=== PATIENT | female | born 2000 | race Caucasian/White ===

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

== ENCOUNTER 2020-10-31 20:27 | Emergency (ER) | payer MEDICAID, OTHER ==
[~2020-10-31] VITALS: Ht 175.3 cm; Wt 81.8 kg
[~2020-10-31 20:27] MED LIST: ARIP2TAB27 PO; MIRT-89 PO
[2020-10-31 21:04] VITALS: BP 123/54
[2020-10-31] MEDS ORDERED: KETOROLAC TROMETHAMINE 30 MG/ML VIAL IM ONE (22:15)
== END 2020-11-01 00:18 | disposition home or self-care (01) ==
LOC: EMS 20:27
DX: S76.911A Strain of unspecified muscles, fascia and tendons at thigh level, right thigh, initial encounter (principal); Z88.8 Allergy status to other drugs, medicaments and biological substances; X58.XXXA Exposure to other specified factors, initial encounter; Y93.6A Activity, physical games generally associated with school recess, summer camp and children; Y92.89 Other specified places as the place of occurrence of the external cause; Y99.8 Other external cause status
CPT/HCPCS: 93971; 96372; 99284; J1885

== ENCOUNTER 2020-11-11 13:45 | Inpatient (IN) | payer MEDICAID, OTHER ==
[~2020-11-11] VITALS: Ht 175.3 cm; Wt 86.9 kg
[2020-11-11] MEDS ORDERED: QUET300T2 PO (14:06)
[2020-11-11] MEDS ORDERED: MULT-1192 PO (14:06)
[2020-11-11] MEDS ORDERED: CHLO25TA69 PO (14:06)
[2020-11-11] MEDS ORDERED: DOCU-270 PO (14:06)
[2020-11-11] MEDS ORDERED: IBUP-2070 PO (14:06)
[2020-11-11] MEDS ORDERED: CHLO100T31 PO (14:06)
[2020-11-11] MEDS ORDERED: GUAN1TAB22 PO (14:06)
[2020-11-11] MEDS ORDERED: LORA10TA7 PO (14:06)
[2020-11-11] MEDS ORDERED: POLY30DR OU (14:07)
[2020-11-11 14:37] LABS: EOSINOPHILS % (AUTO) 1.3 % (1.0-6.0); HEMATOCRIT 42.4 % (36-46); HEMOGLOBIN 14.1 g/dL (12.0-16.0); LYMPHOCYTES # (AUTO) 1.8 K/uL (1.0-4.8); LYMPHOCYTES % (AUTO) 28.7 % (22.0-44.0); MEAN CORPUSCULAR HEMOGLOBIN 29.1 pg (26.0-34.0); MEAN CORPUSCULAR HGB CONC 33.3 G/dL (31.0-37.0); MEAN CORPUSCULAR VOLUME 87 fL (80-100); MONOCYTES # (AUTO) 0.4 K/uL (0.1-1.0); MONOCYTES % (AUTO) 6.8 % (2.0-9.0); NEUTROPHILS # (AUTO) 3.9 K/uL (1.8-7.7); NEUTROPHILS % (AUTO) 62.2 % (40.0-70.0); PLATELET COUNT (AUTO) 325 K/uL (150-450); RED BLOOD CELL COUNT(AUTO) 4.85 MIL/uL (4.00-5.20); RED CELL DISTRIBUTION WIDTH 12.7 % (11.5-14.5)
[2020-11-11 14:51] LABS: ANION GAP 12 mmol/L (8-16); CALCIUM, TOTAL 9.3 mg/dL (8.8-10.5); CARBON DIOXIDE 27 mmol/L (22-29); CHLORIDE 103 mmol/L (98-107); CREATININE 0.75 mg/dL (0.60-1.30); GLOMERULAR FILTR. RATE CALC > 60 mL/min (>60); GLUCOSE,RANDOM 100 mg/dL (70-110); POTASSIUM 3.9 mmol/L (3.5-5.1); SODIUM SERUM 142 mmol/L (136-145); UREA NITROGEN, BLOOD 13 mg/dL (7-18)
[2020-11-11 14:57] LABS: ALANINE AMINOTRANSFERASE 31 U/L (12-78); ALBUMIN 4.1 g/dL (3.4-5.0); ALKALINE PHOSPHATASE 90 U/L (46-116); ASPARTATE AMINOTRANSFERASE 19 U/L (15-37); BILIRUBIN,TOTAL 0.5 mg/dL (0.1-1.0); TOTAL PROTEIN, SERUM 7.8 g/dL (6.4-8.2)
[2020-11-11] MEDS ORDERED: LORazepam 1 MG TABLET PO ONE (15:30)
[2020-11-11] MEDS ORDERED: HALOPERIDOL 5 MG TABLET PO ONE (15:30)
[2020-11-11 16:13] LABS: AMPHET/METH SCREEN,URINE NEGATIVE (NEGATIVE); BARBITURATE SCREEN, URINE NEGATIVE (NEGATIVE); BENZODIAZEPINES SCREEN,URINE NEGATIVE (NEGATIVE); CANNABINOID SCREEN,URINE NEGATIVE (NEGATIVE); COCAINE SCREEN,URINE NEGATIVE (NEGATIVE); METHADONE SCREEN, URINE NEGATIVE (NEGATIVE); OPIATE SCREEN,URINE NEGATIVE (NEGATIVE)
[2020-11-11 16:14] LABS: PHENCYCLIDINE SCREEN,URINE NEGATIVE (NEGATIVE)
[2020-11-11 17:47] LABS: COVID AG,FIA SOURCE NASOPHARYNGEAL
[2020-11-11 19:59] VITALS: BP 105/66
[2020-11-11] MEDS ORDERED: OLANZapine 5 MG RAPDIS TABLET PO PRN (22:45)
[2020-11-11] MEDS ORDERED: LORazepam 2 MG TABLET PO PRN (22:45)
[2020-11-11] MEDS ORDERED: ZOLPIDEM TARTRATE 10 MG TABLET PO PRN (22:45)
[2020-11-12] MEDS ORDERED: PETROLATUM,WHITE 28 GM JELLY TP PRN (07:00)
[2020-11-12] MEDS ORDERED: IBUPROFEN 600 MG TABLET PO PRN (07:00)
[2020-11-12] MEDS ORDERED: CloNIDine HCL 0.1 MG TABLET PO PRN (07:00)
[2020-11-12] MEDS ORDERED: ACETAMINOPHEN 325 MG TABLET PO PRN (07:00)
[2020-11-12] MEDS ORDERED: DOCUSATE SODIUM 100 MG CAPSULE PO PRN (07:00)
[2020-11-12] MEDS ORDERED: ALBUTEROL SULFATE HFA 90 MCG/PUFF 8 GM INHALER IH PRN (07:00)
[2020-11-12] MEDS ORDERED: MAG HYDROX/AL HYDROX/SIMETH ES 30 ML SUSPENSION UDCUP PO PRN (07:00)
[2020-11-12] MEDS ORDERED: MAGNESIUM HYDROXIDE SUSPENSION 30 ML UDCUP PO PRN (07:00)
[2020-11-12] MEDS ORDERED: BACITRACIN 28 GM OINTMENT TP PRN (07:00)
[2020-11-12] MEDS ORDERED: LOPERAMIDE HCL 2 MG CAPSULE PO PRN (07:00)
[2020-11-12] MEDS ORDERED: BENZOCAINE/MENTHOL LOZENGE PO PRN (07:00)
[2020-11-12] MEDS ORDERED: OMEPRAZOLE 20 MG CAPSULE PO PRN (07:00)
[2020-11-12] MEDS ORDERED: ONDANSETRON HCL 4 MG TABLET PO PRN (07:00)
[2020-11-12 08:38] VITALS: BP 96/60
[2020-11-12] MEDS: LORATADINE 10 MG TABLET PO SCH (10:00)
[2020-11-12] MEDS: MULTIVITAMINS, THERAPEUTIC TABLET PO SCH (10:00)
[2020-11-12 10:29] LABS: CHOL/HDL RATIO 4.4 (3.9-5.7)
[2020-11-12 16:37] VITALS: BP 119/68
[2020-11-12] MEDS: CARBOXYMETHYLCELLULOSE SODIUM 0.4 ML OPHTHALMIC SOLUTION [PF] OU SCH (21:10)
[2020-11-12] MEDS: TraZODone HCL 150 MG TABLET PO SCH (21:10)
[2020-11-13] MEDS: ZIPRASIDONE HCL 40 MG CAPSULE PO SCH ×2 (06:37→16:47)
[2020-11-13 08:33] VITALS: BP 106/77
[2020-11-13] MEDS: CARBOXYMETHYLCELLULOSE SODIUM 0.4 ML OPHTHALMIC SOLUTION [PF] OU SCH ×4 (08:56→20:07)
[2020-11-13] MEDS: GuanFACINE HCL 1 MG TABLET PO SCH ×2 (08:56→16:47)
[2020-11-13] MEDS: MULTIVITAMINS, THERAPEUTIC TABLET PO SCH (08:57)
[2020-11-13] MEDS: LORATADINE 10 MG TABLET PO SCH (08:57)
[2020-11-13 16:00] VITALS: BP 101/6
[2020-11-13] MEDS ORDERED: ARIP10TA38 PO (18:25)
[2020-11-13] MEDS: TraZODone HCL 150 MG TABLET PO SCH (20:07)
[2020-11-14] MEDS: ZIPRASIDONE HCL 60 MG CAPSULE PO SCH ×2 (06:55→17:10)
[2020-11-14] MEDS: GuanFACINE HCL 1 MG TABLET PO SCH ×2 (08:54→17:10)
[2020-11-14] MEDS: FLUoxetine HCL 20 MG CAPSULE PO SCH (08:54)
[2020-11-14] MEDS: LORATADINE 10 MG TABLET PO SCH (08:55)
[2020-11-14] MEDS: MULTIVITAMINS, THERAPEUTIC TABLET PO SCH (08:55)
[2020-11-14] MEDS: CARBOXYMETHYLCELLULOSE SODIUM 0.4 ML OPHTHALMIC SOLUTION [PF] OU SCH ×4 (08:55→21:08)
[2020-11-14 16:20] VITALS: BP 106/71
[2020-11-14] MEDS: TraZODone HCL 150 MG TABLET PO SCH (21:08)
[2020-11-15] MEDS: ZIPRASIDONE HCL 80 MG CAPSULE PO SCH ×2 (06:59→17:24)
[2020-11-15] MEDS: MULTIVITAMINS, THERAPEUTIC TABLET PO SCH (08:17)
[2020-11-15] MEDS: GuanFACINE HCL 1 MG TABLET PO SCH ×3 (08:18→17:24)
[2020-11-15] MEDS: CARBOXYMETHYLCELLULOSE SODIUM 0.4 ML OPHTHALMIC SOLUTION [PF] OU SCH ×4 (08:18→21:14)
[2020-11-15] MEDS: FLUoxetine HCL 20 MG CAPSULE PO SCH (08:47)
[2020-11-15] MEDS: LORATADINE 10 MG TABLET PO SCH (08:47)
[2020-11-15 08:54] VITALS: BP 95/53
[2020-11-15 16:00] VITALS: BP 103/65
[2020-11-15] MEDS ORDERED: OLANZapine 5 MG RAPDIS TABLET PO ONE (19:30)
[2020-11-15] MEDS: TraZODone HCL 150 MG TABLET PO SCH (21:14)
[2020-11-16] MEDS: ZIPRASIDONE HCL 80 MG CAPSULE PO SCH (06:47)
[2020-11-16] MEDS: LORATADINE 10 MG TABLET PO SCH (08:38)
[2020-11-16] MEDS: MULTIVITAMINS, THERAPEUTIC TABLET PO SCH (08:38)
[2020-11-16] MEDS: FLUoxetine HCL 20 MG CAPSULE PO SCH (08:38)
[2020-11-16] MEDS: CARBOXYMETHYLCELLULOSE SODIUM 0.4 ML OPHTHALMIC SOLUTION [PF] OU SCH ×2 (08:40→13:49)
[2020-11-16] MEDS: GuanFACINE HCL 1 MG TABLET PO SCH (08:40)
[2020-11-16 09:27] VITALS: BP 98/66
[2020-11-16] MEDS ORDERED: OMEG-135 PO (12:00)
[2020-11-16] MEDS ORDERED: OLAN5TAB94 PO (12:00)
[2020-11-16] MEDS ORDERED: FLUO20CA36 PO (12:00)
[2020-11-16] MEDS ORDERED: MELA5TAB3 PO (12:00)
[2020-11-16] MEDS ORDERED: GUAN1TAB2 PO (12:00)
[2020-11-16] MEDS ORDERED: TRAZ150 PO (12:00)
[2020-11-16] MEDS ORDERED: CARB1DRO8 OU (12:40)
[2020-11-16 15:20] LABS: COVID AG,FIA SOURCE NASOPHARYNGEAL
[2020-11-16] MEDS ORDERED: ZIPRASIDONE HCL 40 MG CAPSULE PO SCH (17:30)
[2020-11-16] MEDS ORDERED: OLANZapine 5 MG RAPDIS TABLET PO SCH (21:00)
== END 2020-11-16 16:30 | disposition home or self-care (01) | DRG 750 ==
LOC: EMS 13:45 → 3EI 18:30
PROVIDERS: ADMIT Psychiatry & Neurology Psychiatry; ATTEND Psychiatry & Neurology Psychiatry
DX: F25.1 Schizoaffective disorder, depressive type (principal); R45.851 Suicidal ideations; Z91.19 Patient's noncompliance with other medical treatment and regimen; F41.9 Anxiety disorder, unspecified; Z20.822 Contact with and (suspected) exposure to COVID-19; G47.00 Insomnia, unspecified; H54.61 Unqualified visual loss, right eye, normal vision left eye; Z87.820 Personal history of traumatic brain injury; Z65.3 Problems related to other legal circumstances; Z59.9 Problem related to housing and economic circumstances, unspecified; Z55.9 Problems related to education and literacy, unspecified
CPT/HCPCS: 80053; 80061; 85025; 87081; 93005; 99285; G0480

== ENCOUNTER 2021-03-22 17:12 | Inpatient (IN) | payer MEDICAID, OTHER ==
[~2021-03-22] VITALS: Ht 175.3 cm; Wt 86.6 kg
[~2021-03-22 17:12] MED LIST changes: -ARIP2TAB27 PO; +CEPH500C3 PO; +FLUO20CA36 PO; +LURA80TA2 PO; +MELA5TAB40 PO; -MIRT-89 PO; +NALT50TA PO; +OMEG-135 PO; +TRAZ-283 PO
[2021-03-22 17:47] LABS: BASOPHILS % (AUTO) 0.8 % (0.0-2.0); HEMATOCRIT 37.7 % (36-46); HEMOGLOBIN 12.8 g/dL (12.0-16.0); MEAN CORPUSCULAR HEMOGLOBIN 29.2 pg (26.0-34.0); MEAN CORPUSCULAR VOLUME 86 fL (80-100); MONOCYTES # (AUTO) 0.5 K/uL (0.1-1.0); MONOCYTES % (AUTO) 6.9 % (2.0-9.0); NEUTROPHILS % (AUTO) 60.3 % (40.0-70.0); PLATELET COUNT (AUTO) 323 K/uL (150-450); RED BLOOD CELL COUNT(AUTO) 4.38 MIL/uL (4.00-5.20)
[2021-03-22 17:58] LABS: ANION GAP 9 mmol/L (8-16); CALCIUM, TOTAL 9.2 mg/dL (8.8-10.5); CARBON DIOXIDE 30 mmol/L (22-29); CHLORIDE 103 mmol/L (98-107); CREATININE 0.91 mg/dL (0.60-1.30); GLOMERULAR FILTR. RATE CALC > 60 mL/min (>60); GLUCOSE,RANDOM 92 mg/dL (70-110); SODIUM SERUM 142 mmol/L (136-145); UREA NITROGEN, BLOOD 11 mg/dL (7-18)
[2021-03-22 18:04] LABS: ALANINE AMINOTRANSFERASE 24 U/L (12-78); ALBUMIN 3.9 g/dL (3.4-5.0); ALKALINE PHOSPHATASE 77 U/L (46-116); ASPARTATE AMINOTRANSFERASE 15 U/L (15-37); BILIRUBIN,TOTAL 0.2 mg/dL (0.1-1.0); TOTAL PROTEIN, SERUM 7.2 g/dL (6.4-8.2)
[2021-03-22 21:14] LABS: COVID AG,FIA SOURCE NASOPHARYNGEAL
[2021-03-22] MEDS ORDERED: ZOLPIDEM TARTRATE 10 MG TABLET PO PRN (23:30)
[2021-03-23 03:08] LABS: CHOL/HDL RATIO 3.3 (3.9-5.7); CHOLESTEROL 132 mg/dL (131-200); HDL CHOLESTEROL 40 mg/dL (40-60); LDL CHOL (CALC.) 75 mg/dL (0-130); TRIGLYCERIDES 87 mg/dL (15-150)
[2021-03-23 10:08] LABS: APPEARANCE,URINE CLEAR (CLEAR); BILIRUBIN,URINE NEGATIVE (NEGATIVE); GLUCOSE, URINE (UA) NEGATIVE (NEGATIVE); KETONES,URINE NEGATIVE (NEGATIVE); LEUKOCYTE ESTERASE ,URINE SMALL (NEGATIVE); NITRATE,URINE NEGATIVE (NEGATIVE); OCCULT BLOOD,URINE NEGATIVE (NEGATIVE); PH,URINE 5.5 (5.0-8.0); PROTEIN,URINE NEGATIVE (NEGATIVE); UROBILINOGEN,URINE 0.2 mg/dL (<=1.0)
[2021-03-23 10:13] LABS: AMPHET/METH SCREEN,URINE NEGATIVE (NEGATIVE); BARBITURATE SCREEN, URINE NEGATIVE (NEGATIVE); BENZODIAZEPINES SCREEN,URINE NEGATIVE (NEGATIVE); CANNABINOID SCREEN,URINE NEGATIVE (NEGATIVE); COCAINE SCREEN,URINE NEGATIVE (NEGATIVE); METHADONE SCREEN, URINE NEGATIVE (NEGATIVE); OPIATE SCREEN,URINE NEGATIVE (NEGATIVE)
[2021-03-23 10:17] LABS: PHENCYCLIDINE SCREEN,URINE NEGATIVE (NEGATIVE)
[2021-03-23 10:23] LABS: BACTERIA,URINE Moderate /HPF (None Seen); RBC,URINE None Seen /HPF (0-2); SQUAMOUS EPITHELIAL CELL,UR Moderate /LPF (None Seen)
[2021-03-23] MEDS ORDERED: ONDANSETRON HCL 4 MG TABLET PO PRN (10:30)
[2021-03-23] MEDS ORDERED: IBUPROFEN 400 MG TABLET PO PRN (10:30)
[2021-03-23] MEDS ORDERED: ACETAMINOPHEN 325 MG TABLET PO PRN (10:30)
[2021-03-23] MEDS ORDERED: MAG HYDROX/AL HYDROX/SIMETH ES 30 ML SUSPENSION UDCUP PO PRN (10:30)
[2021-03-23] MEDS ORDERED: NICOTINE 14 MG/24 HOUR PATCH TD PRN (10:30)
[2021-03-23] MEDS ORDERED: CloNIDine HCL 0.1 MG TABLET PO PRN (10:30)
[2021-03-23] MEDS ORDERED: DOCUSATE SODIUM 100 MG CAPSULE PO PRN (10:30)
[2021-03-23] MEDS ORDERED: MAGNESIUM HYDROXIDE SUSPENSION 30 ML UDCUP PO PRN (10:30)
[2021-03-23] MEDS ORDERED: ALBUTEROL SULFATE HFA 90 MCG/PUFF 8 GM INHALER IH PRN (10:30)
[2021-03-23] MEDS ORDERED: LOPERAMIDE HCL 2 MG CAPSULE PO PRN (10:30)
[2021-03-23] MEDS ORDERED: PETROLATUM,WHITE 28 GM JELLY TP PRN (10:30)
[2021-03-23] MEDS ORDERED: GuaiFENesin/D-METHORPHAN [SUGAR-FREE] 200-20MG/10 ML SYRUP UDCUP PO PRN (10:30)
[2021-03-23 14:38] VITALS: BP 110/63
[2021-03-23] MEDS: LORazepam 2 MG TABLET PO PRN ×2 (15:42→23:11)
[2021-03-23 16:11] VITALS: BP 110/68
[2021-03-23] MEDS: MELATONIN 5 MG TABLET PO SCH (20:55)
[2021-03-24 00:51] VITALS: BP 118/62
[2021-03-24 08:28] VITALS: BP 118/79
[2021-03-24] MEDS: OMEGA-3/DHA/EPA/FISH OIL 1,000 MG CAPSULE PO SCH (09:16)
[2021-03-24] MEDS: LORazepam 2 MG TABLET PO PRN (10:49)
[2021-03-24] MEDS: HALOPERIDOL 5 MG TABLET PO PRN (10:49)
[2021-03-24] MEDS: LURASIDONE HCL 80 MG TABLET PO SCH (16:25)
[2021-03-24 16:31] VITALS: BP 108/61
[2021-03-24] MEDS: MELATONIN 5 MG TABLET PO SCH (21:05)
[2021-03-24] MEDS: TraZODone HCL 150 MG TABLET PO SCH (21:06)
[2021-03-25 01:13] VITALS: BP 116/64
[2021-03-25] MEDS: LURASIDONE HCL 80 MG TABLET PO SCH ×2 (06:52→16:30)
[2021-03-25] MEDS: OMEGA-3/DHA/EPA/FISH OIL 1,000 MG CAPSULE PO SCH (08:27)
[2021-03-25] MEDS: FLUoxetine HCL 20 MG CAPSULE PO SCH (08:27)
[2021-03-25 14:23] VITALS: BP 110/68
[2021-03-25 17:51] VITALS: BP 116/69
[2021-03-25] MEDS: TraZODone HCL 150 MG TABLET PO SCH (20:49)
[2021-03-25] MEDS: MELATONIN 5 MG TABLET PO SCH (20:50)
[2021-03-25] MEDS: LORazepam 2 MG TABLET PO PRN (22:02)
[2021-03-26 03:45] VITALS: BP 102/81
[2021-03-26] MEDS: LURASIDONE HCL 80 MG TABLET PO SCH ×2 (07:18→16:34)
[2021-03-26] MEDS: OMEGA-3/DHA/EPA/FISH OIL 1,000 MG CAPSULE PO SCH (08:46)
[2021-03-26] MEDS: FLUoxetine HCL 20 MG CAPSULE PO SCH (08:46)
[2021-03-26 16:13] VITALS: BP 111/79
[2021-03-26] MEDS: MELATONIN 5 MG TABLET PO SCH (21:22)
[2021-03-26] MEDS: TraZODone HCL 150 MG TABLET PO SCH (21:22)
[2021-03-27 00:29] VITALS: BP 113/73
[2021-03-27] MEDS: LURASIDONE HCL 80 MG TABLET PO SCH ×2 (06:49→16:18)
[2021-03-27 08:16] VITALS: BP 103/63
[2021-03-27] MEDS: OMEGA-3/DHA/EPA/FISH OIL 1,000 MG CAPSULE PO SCH (08:25)
[2021-03-27] MEDS: FLUoxetine HCL 20 MG CAPSULE PO SCH (08:25)
[2021-03-27 16:20] VITALS: BP 104/91
[2021-03-27] MEDS: MELATONIN 5 MG TABLET PO SCH (20:14)
[2021-03-27] MEDS: TraZODone HCL 150 MG TABLET PO SCH (20:14)
[2021-03-28 00:46] VITALS: BP 115/72
[2021-03-28] MEDS: LURASIDONE HCL 80 MG TABLET PO SCH ×2 (06:46→16:22)
[2021-03-28 08:10] VITALS: BP 119/59
[2021-03-28] MEDS: OMEGA-3/DHA/EPA/FISH OIL 1,000 MG CAPSULE PO SCH (08:45)
[2021-03-28] MEDS: FLUoxetine HCL 20 MG CAPSULE PO SCH (08:45)
[2021-03-28 11:36] LABS: GLUCOMETER DEV NAME(LOC) POC.BV
[2021-03-28 16:17] VITALS: BP 107/68
[2021-03-28] MEDS: MELATONIN 5 MG TABLET PO SCH (20:47)
[2021-03-28] MEDS: TraZODone HCL 150 MG TABLET PO SCH (20:47)
[2021-03-29 00:30] VITALS: BP 110/76
[2021-03-29] MEDS: LURASIDONE HCL 80 MG TABLET PO SCH ×2 (06:49→19:43)
[2021-03-29 08:26] VITALS: BP 121/70
[2021-03-29] MEDS: LORazepam 2 MG TABLET PO PRN (08:35)
[2021-03-29] MEDS: FLUoxetine HCL 20 MG CAPSULE PO SCH (08:35)
[2021-03-29] MEDS: OMEGA-3/DHA/EPA/FISH OIL 1,000 MG CAPSULE PO SCH (08:35)
[2021-03-29 16:06] VITALS: BP 112/67
[2021-03-29] MEDS: MELATONIN 5 MG TABLET PO SCH (20:16)
[2021-03-29] MEDS: TraZODone HCL 150 MG TABLET PO SCH (20:16)
[2021-03-29] MEDS ORDERED: LORazepam 2 MG/ML VIAL ONE (20:43)
[2021-03-29] MEDS ORDERED: DiphenhydrAMINE HCL 50 MG/ML VIAL ONE (20:43)
[2021-03-29] MEDS ORDERED: HALOPERIDOL LACTATE 5 MG/ML VIAL ONE (20:43)
[2021-03-29] MEDS ORDERED: HALOPERIDOL LACTATE 5 MG/ML VIAL IM ONE (21:00)
[2021-03-29] MEDS ORDERED: DiphenhydrAMINE HCL 50 MG/ML VIAL IM ONE (21:00)
[2021-03-29] MEDS ORDERED: LORazepam 2 MG/ML VIAL IM ONE (21:00)
[2021-03-30 06:20] VITALS: BP 114/63
[2021-03-30] MEDS: LURASIDONE HCL 80 MG TABLET PO SCH ×2 (06:39→16:10)
[2021-03-30 08:18] VITALS: BP 121/76
[2021-03-30] MEDS: OMEGA-3/DHA/EPA/FISH OIL 1,000 MG CAPSULE PO SCH (08:38)
[2021-03-30] MEDS: FLUoxetine HCL 20 MG CAPSULE PO SCH (08:38)
[2021-03-30 16:14] VITALS: BP 112/70
[2021-03-30] MEDS: TraZODone HCL 150 MG TABLET PO SCH (20:09)
[2021-03-30] MEDS: MELATONIN 5 MG TABLET PO SCH (20:09)
[2021-03-31 00:05] VITALS: BP 110/65
[2021-03-31] MEDS: LURASIDONE HCL 80 MG TABLET PO SCH ×2 (06:30→16:21)
[2021-03-31] MEDS: OMEGA-3/DHA/EPA/FISH OIL 1,000 MG CAPSULE PO SCH (08:41)
[2021-03-31] MEDS: FLUoxetine HCL 20 MG CAPSULE PO SCH (08:41)
[2021-03-31 08:46] VITALS: BP 101/56
[2021-03-31] MEDS: LORazepam 2 MG TABLET PO PRN (09:14)
[2021-03-31 17:22] VITALS: BP 108/60
[2021-03-31] MEDS: TraZODone HCL 150 MG TABLET PO SCH (20:18)
[2021-03-31] MEDS: MELATONIN 5 MG TABLET PO SCH (20:18)
[2021-04-01 04:06] VITALS: BP 115/72
[2021-04-01] MEDS: LURASIDONE HCL 80 MG TABLET PO SCH ×2 (06:51→16:25)
[2021-04-01] MEDS: OMEGA-3/DHA/EPA/FISH OIL 1,000 MG CAPSULE PO SCH (09:38)
[2021-04-01] MEDS: FLUoxetine HCL 20 MG CAPSULE PO SCH (09:38)
[2021-04-01 16:10] VITALS: BP 114/62
[2021-04-01] MEDS: MELATONIN 5 MG TABLET PO SCH (20:48)
[2021-04-01] MEDS: TraZODone HCL 150 MG TABLET PO SCH (20:48)
[2021-04-02 06:33] VITALS: BP 120/78
[2021-04-02] MEDS: LURASIDONE HCL 80 MG TABLET PO SCH ×2 (06:56→16:56)
[2021-04-02 08:19] VITALS: BP 118/73
[2021-04-02] MEDS: OMEGA-3/DHA/EPA/FISH OIL 1,000 MG CAPSULE PO SCH (09:22)
[2021-04-02] MEDS: FLUoxetine HCL 20 MG CAPSULE PO SCH (09:22)
[2021-04-02] MEDS: HALOPERIDOL 5 MG TABLET PO PRN (09:26)
[2021-04-02] MEDS: LORazepam 2 MG TABLET PO PRN ×2 (09:26→20:35)
[2021-04-02 16:26] VITALS: BP 105/65
[2021-04-02] MEDS: MELATONIN 5 MG TABLET PO SCH (21:53)
[2021-04-02] MEDS: TraZODone HCL 150 MG TABLET PO SCH (21:53)
[2021-04-03 01:11] VITALS: BP 102/68
[2021-04-03] MEDS: LURASIDONE HCL 80 MG TABLET PO SCH ×2 (06:49→16:35)
[2021-04-03 08:17] VITALS: BP 110/66
[2021-04-03] MEDS: LORazepam 2 MG TABLET PO PRN ×2 (08:32→16:35)
[2021-04-03] MEDS: FLUoxetine HCL 20 MG CAPSULE PO SCH (08:32)
[2021-04-03] MEDS: OMEGA-3/DHA/EPA/FISH OIL 1,000 MG CAPSULE PO SCH (08:32)
[2021-04-03 16:21] VITALS: BP 111/67
[2021-04-03] MEDS: TraZODone HCL 150 MG TABLET PO SCH (20:09)
[2021-04-03] MEDS: MELATONIN 5 MG TABLET PO SCH (20:09)
[2021-04-04 00:20] VITALS: BP 108/63
[2021-04-04] MEDS: LURASIDONE HCL 80 MG TABLET PO SCH ×2 (06:54→16:06)
[2021-04-04 08:10] VITALS: BP 116/69
[2021-04-04] MEDS: LORazepam 2 MG TABLET PO PRN ×2 (08:39→16:06)
[2021-04-04] MEDS: FLUoxetine HCL 20 MG CAPSULE PO SCH (08:39)
[2021-04-04] MEDS: OMEGA-3/DHA/EPA/FISH OIL 1,000 MG CAPSULE PO SCH (08:39)
[2021-04-04 16:20] VITALS: BP 113/67
[2021-04-04] MEDS: TraZODone HCL 150 MG TABLET PO SCH (20:04)
[2021-04-04] MEDS: MELATONIN 5 MG TABLET PO SCH (20:05)
[2021-04-05 00:47] VITALS: BP 110/71
[2021-04-05] MEDS: LURASIDONE HCL 80 MG TABLET PO SCH ×2 (06:06→16:09)
[2021-04-05 08:05] VITALS: BP 106/62
[2021-04-05 08:09] VITALS: BP 114/72
[2021-04-05] MEDS: LORazepam 2 MG TABLET PO PRN ×2 (09:58→16:09)
[2021-04-05] MEDS: FLUoxetine HCL 20 MG CAPSULE PO SCH (09:58)
[2021-04-05] MEDS: OMEGA-3/DHA/EPA/FISH OIL 1,000 MG CAPSULE PO SCH (09:59)
[2021-04-05 16:22] VITALS: BP 139/60
[2021-04-05] MEDS: MELATONIN 5 MG TABLET PO SCH (21:05)
[2021-04-05] MEDS: TraZODone HCL 150 MG TABLET PO SCH (21:05)
[2021-04-06 05:27] VITALS: BP 140/85
[2021-04-06] MEDS: LURASIDONE HCL 80 MG TABLET PO SCH ×2 (06:18→16:02)
[2021-04-06 07:22] LABS: COVID AG,FIA SOURCE NASOPHARYNGEAL
[2021-04-06 08:13] VITALS: BP 120/70
[2021-04-06] MEDS: OMEGA-3/DHA/EPA/FISH OIL 1,000 MG CAPSULE PO SCH (08:42)
[2021-04-06] MEDS: FLUoxetine HCL 20 MG CAPSULE PO SCH (08:43)
[2021-04-06] MEDS: LORazepam 2 MG TABLET PO PRN ×3 (10:35→20:53)
[2021-04-06 16:02] VITALS: BP 127/72
[2021-04-06] MEDS: MELATONIN 5 MG TABLET PO SCH (20:53)
[2021-04-06] MEDS: TraZODone HCL 150 MG TABLET PO SCH (20:53)
[2021-04-07 01:16] VITALS: BP 114/68
[2021-04-07] MEDS: LURASIDONE HCL 80 MG TABLET PO SCH ×2 (07:05→16:12)
[2021-04-07 08:08] VITALS: BP 118/84
[2021-04-07] MEDS: OMEGA-3/DHA/EPA/FISH OIL 1,000 MG CAPSULE PO SCH (08:15)
[2021-04-07] MEDS: FLUoxetine HCL 20 MG CAPSULE PO SCH (08:15)
[2021-04-07] MEDS: LORazepam 2 MG TABLET PO PRN ×2 (11:44→20:22)
[2021-04-07 16:08] VITALS: BP 104/62
[2021-04-07] MEDS: TraZODone HCL 150 MG TABLET PO SCH (20:21)
[2021-04-07] MEDS: MELATONIN 5 MG TABLET PO SCH (20:21)
[2021-04-08 00:08] VITALS: BP 101/69
[2021-04-08] MEDS: LURASIDONE HCL 80 MG TABLET PO SCH ×2 (07:11→16:26)
[2021-04-08] MEDS: FLUoxetine HCL 20 MG CAPSULE PO SCH (08:09)
[2021-04-08] MEDS: OMEGA-3/DHA/EPA/FISH OIL 1,000 MG CAPSULE PO SCH (08:09)
[2021-04-08 08:33] VITALS: BP 93/59
[2021-04-08 16:07] VITALS: BP 111/67
[2021-04-08] MEDS: TraZODone HCL 150 MG TABLET PO SCH (20:43)
[2021-04-08] MEDS: MELATONIN 5 MG TABLET PO SCH (20:44)
[2021-04-09 01:33] VITALS: BP 108/60
[2021-04-09] MEDS: LURASIDONE HCL 80 MG TABLET PO SCH (06:56)
[2021-04-09] MEDS: FLUoxetine HCL 20 MG CAPSULE PO SCH (08:33)
[2021-04-09] MEDS: OMEGA-3/DHA/EPA/FISH OIL 1,000 MG CAPSULE PO SCH (08:33)
[2021-04-09 08:35] VITALS: BP 119/73
== END 2021-04-09 13:15 | disposition home or self-care (01) | DRG 750 ==
LOC: EMS 17:12 → B3A 03-23 12:47 → B2S 03-24 12:14 → B3A 03-29 21:15
PROVIDERS: ADMIT Psychiatry & Neurology Psychiatry; ATTEND Psychiatry & Neurology Psychiatry
DX: F25.1 Schizoaffective disorder, depressive type (principal); F70 Mild intellectual disabilities; H54.61 Unqualified visual loss, right eye, normal vision left eye; Z20.822 Contact with and (suspected) exposure to COVID-19; N39.0 Urinary tract infection, site not specified; S61.511A Laceration without foreign body of right wrist, initial encounter; S61.512A Laceration without foreign body of left wrist, initial encounter; X78.9XXA Intentional self-harm by unspecified sharp object, initial encounter; Z59.00 Homelessness unspecified; Z79.899 Other long term (current) drug therapy; Z88.8 Allergy status to other drugs, medicaments and biological substances; Y93.89 Activity, other specified; Y92.89 Other specified places as the place of occurrence of the external cause; Y99.8 Other external cause status
CPT/HCPCS: 80053; 80061; 81001; 84703; 85025; 87081; 87086; 99285; G0480; J1200; J1630; J2060; Q9967

== ENCOUNTER 2023-03-14 21:14 | Inpatient (IN) | payer MEDICAID ==
[~2023-03-14] VITALS: Ht 170.2 cm; Wt 113.9 kg
[~2023-03-14 21:14] MED LIST changes: -CEPH500C3 PO; -FLUO20CA36 PO; +LITH300C3 PO; -LURA80TA2 PO; +LURA80TA4 PO; -MELA5TAB40 PO; -NALT50TA PO; -OMEG-135 PO; -TRAZ-283 PO
[2023-03-14 22:50] VITALS: BP 109/72; PULSE 99; RESP 18; TEMP 98; O2SAT 96
[2023-03-14] MEDS: ZOLPIDEM TARTRATE 10 MG TABLET PO PRN (23:07)
[2023-03-15] MEDS ORDERED: INFLUENZA VIRUS VACCINE QVS 2023-24 (6MO+)/PF 60 MCG/0.5 ML SYRINGE IM. ONE (02:45)
[2023-03-15] MEDS ORDERED: NICOTINE POLACRILEX 2 MG LOZENGE PO PRN (03:15)
[2023-03-15] MEDS ORDERED: CloNIDine HCL 0.1 MG TABLET PO PRN (07:00)
[2023-03-15] MEDS ORDERED: PETROLATUM,WHITE 28 GM JELLY TP PRN (07:00)
[2023-03-15] MEDS ORDERED: IBUPROFEN 400 MG TABLET PO PRN (07:00)
[2023-03-15] MEDS ORDERED: ONDANSETRON HCL 4 MG TABLET PO PRN (07:00)
[2023-03-15] MEDS ORDERED: NICOTINE 14 MG/24 HOUR PATCH TD PRN (07:00)
[2023-03-15] MEDS ORDERED: MAG HYDROX/ALUMINUM HYD/SIMETH ES 30 ML SUSPENSION UDCUP PO PRN (07:00)
[2023-03-15] MEDS ORDERED: ALBUTEROL SULFATE HFA 90 MCG/PUFF 8 GM INHALER IH PRN (07:00)
[2023-03-15] MEDS ORDERED: ACETAMINOPHEN 325 MG TABLET PO PRN (07:00)
[2023-03-15] MEDS ORDERED: MAGNESIUM HYDROXIDE SUSPENSION 30 ML UDCUP PO PRN (07:00)
[2023-03-15] MEDS ORDERED: DOCUSATE SODIUM 100 MG CAPSULE PO PRN (07:00)
[2023-03-15] MEDS ORDERED: GuaiFENesin/D-METHORPHAN [SUGAR-FREE] 200-20MG/10 ML SYRUP UDCUP PO PRN (07:00)
[2023-03-15] MEDS ORDERED: LOPERAMIDE HCL 2 MG CAPSULE PO PRN (07:00)
[2023-03-15 08:16] LABS: BASOPHILS % (AUTO) 0.6 % (0.0-2.0); EOSINOPHILS % (AUTO) 1.8 % (1.0-6.0); HEMATOCRIT 35.9 % (36-46); HEMOGLOBIN 11.9 g/dL (12.0-16.0); LYMPHOCYTES # (AUTO) 3.2 K/uL (1.0-4.8); LYMPHOCYTES % (AUTO) 41.6 % (22.0-44.0); MEAN CORPUSCULAR HEMOGLOBIN 28.1 pg (26.0-34.0); MEAN CORPUSCULAR HGB CONC 33.3 G/dL (31.0-37.0); MEAN CORPUSCULAR VOLUME 85 fL (80-100); MONOCYTES # (AUTO) 0.6 K/uL (0.1-1.0); MONOCYTES % (AUTO) 7.5 % (2.0-9.0); NEUTROPHILS # (AUTO) 3.7 K/uL (1.8-7.7); NEUTROPHILS % (AUTO) 48.5 % (40.0-70.0); PLATELET COUNT (AUTO) 284 K/uL (150-450); RED BLOOD CELL COUNT(AUTO) 4.24 MIL/uL (4.00-5.20); RED CELL DISTRIBUTION WIDTH 14.1 % (11.5-14.5); WHITE BLOOD COUNT (AUTO) 7.6 K/uL (4.5-11.0)
[2023-03-15 08:22] VITALS: BP 118/70; PULSE 78; RESP 18; TEMP 98; O2SAT 96
[2023-03-15 08:26] LABS: GLUCOMETER DEV NAME(LOC) POC.BV; POC SARS-COV2 AG, FIA NEGATIVE (NEGATIVE)
[2023-03-15 08:28] LABS: HEMOGLOBIN A1C 5.8 % (3.8-5.6)
[2023-03-15 08:41] LABS: ALANINE AMINOTRANSFERASE 33 U/L (12-78); ALKALINE PHOSPHATASE 67 U/L (46-116); ANION GAP 5 mmol/L (8-16); ASPARTATE AMINOTRANSFERASE 20 U/L (15-37); BILIRUBIN,TOTAL 0.2 mg/dL (0.1-1.0); CALCIUM, TOTAL 8.5 mg/dL (8.8-10.5); CARBON DIOXIDE 30 mmol/L (22-29); CHLORIDE 105 mmol/L (98-107); CHOL/HDL RATIO 3.5 (3.9-5.7); CHOLESTEROL 141 mg/dL (131-200); CREATININE 0.64 mg/dL (0.60-1.30); FREE T4 (FREE THYROXINE) 1.02 ng/dL (0.76-1.46); GLOMERULAR FILTR. RATE CALC > 60 mL/min (>60); GLUCOSE,RANDOM 95 mg/dL (70-110); HDL CHOLESTEROL 40 mg/dL (40-60); LDL CHOL (CALC.) 85 mg/dL (0-130); POTASSIUM 3.7 mmol/L (3.5-5.1); SODIUM SERUM 140 mmol/L (136-145); THYROID STIMULATING HORMONE 1.64 uIU/mL (0.36-3.74); TOTAL PROTEIN, SERUM 6.6 g/dL (6.4-8.2); TRIGLYCERIDES 78 mg/dL (15-150); UREA NITROGEN, BLOOD 8 mg/dL (7-18)
[2023-03-15] MEDS: LITHIUM CARBONATE 300 MG CAPSULE PO SCH (16:13)
[2023-03-15] MEDS: LURASIDONE HCL 80 MG TABLET PO SCH (16:13)
[2023-03-15] MEDS: ZOLPIDEM TARTRATE 10 MG TABLET PO PRN (20:00)
[2023-03-15 20:23] VITALS: BP 113/66; PULSE 91; RESP 17; TEMP 98.2; O2SAT 98
[2023-03-15] MEDS: HALOPERIDOL 5 MG TABLET PO PRN (22:54)
[2023-03-15] MEDS: LORazepam 2 MG TABLET PO PRN (22:55)
[2023-03-16] MEDS: LITHIUM CARBONATE 300 MG CAPSULE PO SCH ×2 (08:15→17:17)
[2023-03-16 08:40] LABS: HEMOGLOBIN A1C 5.5 % (3.8-5.6)
[2023-03-16 08:47] LABS: THYROID STIMULATING HORMONE 2.14 uIU/mL (0.36-3.74)
[2023-03-16 08:59] VITALS: BP 102/71; PULSE 78; RESP 17; TEMP 98.5; O2SAT 96
[2023-03-16 09:49] LABS: CHOL/HDL RATIO 3.5 (3.9-5.7)
[2023-03-16] MEDS: LURASIDONE HCL 80 MG TABLET PO SCH (17:17)
[2023-03-16 20:41] VITALS: BP 101/60; PULSE 84; RESP 17; TEMP 97.8; O2SAT 98
[2023-03-16] MEDS: LORazepam 2 MG TABLET PO PRN (21:57)
[2023-03-16] MEDS: HALOPERIDOL 5 MG TABLET PO PRN (22:28)
[2023-03-16] MEDS: ZOLPIDEM TARTRATE 10 MG TABLET PO PRN (23:23)
[2023-03-17 08:35] VITALS: BP 106/68; PULSE 83; RESP 17; TEMP 98.8; O2SAT 98
[2023-03-17 08:36] LABS: APPEARANCE,URINE CLEAR (CLEAR); BILIRUBIN,URINE NEGATIVE (NEGATIVE); COLOR,URINE LIGHT YELLOW (YELLOW); GLUCOSE, URINE (UA) NEGATIVE (NEGATIVE); KETONES,URINE NEGATIVE (NEGATIVE); LEUKOCYTE ESTERASE ,URINE NEGATIVE (NEGATIVE); NITRATE,URINE NEGATIVE (NEGATIVE); OCCULT BLOOD,URINE NEGATIVE (NEGATIVE); PH,URINE 6.5 (5.0-8.0); PH,URINE DRUG SCREEN 6.5 (5.0-8.0); PROTEIN,URINE NEGATIVE (NEGATIVE); SPECIFIC GRAVITIY, URINE 1.021 (1.003-1.030); UROBILINOGEN,URINE <=1.0 mg/dL (<=1.0)
[2023-03-17 08:37] LABS: HCG,QUAL URINE NEGATIVE (NEGATIVE)
[2023-03-17 08:43] LABS: ALCOHOL, URINE DRUG SCREEN NEGATIVE (NEGATIVE); AMPHET/METH SCREEN,URINE NEGATIVE (NEGATIVE); BARBITURATE SCREEN, URINE NEGATIVE (NEGATIVE); BENZODIAZEPINES SCREEN,URINE NEGATIVE (NEGATIVE); CANNABINOID SCREEN,URINE NEGATIVE (NEGATIVE); COCAINE SCREEN,URINE NEGATIVE (NEGATIVE); METHADONE SCREEN, URINE NEGATIVE (NEGATIVE); OPIATE SCREEN,URINE NEGATIVE (NEGATIVE); PHENCYCLIDINE SCREEN,URINE NEGATIVE (NEGATIVE)
[2023-03-17] MEDS: LITHIUM CARBONATE 300 MG CAPSULE PO SCH ×2 (09:10→16:42)
[2023-03-17] MEDS: LURASIDONE HCL 80 MG TABLET PO SCH (16:42)
[2023-03-17 20:13] VITALS: BP 121/75; PULSE 96; RESP 18; TEMP 97.8; O2SAT 98
[2023-03-17] MEDS: LORazepam 2 MG TABLET PO PRN (21:56)
[2023-03-17] MEDS: ZOLPIDEM TARTRATE 10 MG TABLET PO PRN (21:56)
[2023-03-18 01:50] VITALS: BP 125/74; PULSE 88; RESP 18; TEMP 97.8; O2SAT 96
[2023-03-18] MEDS: HALOPERIDOL 5 MG TABLET PO PRN (02:19)
[2023-03-18] MEDS: LORazepam 2 MG TABLET PO PRN (02:19)
[2023-03-18] MEDS: LITHIUM CARBONATE 300 MG CAPSULE PO SCH ×2 (09:00→16:33)
[2023-03-18 09:24] VITALS: BP 110/80; PULSE 98; RESP 18; TEMP 97.7; O2SAT 98
[2023-03-18] MEDS: LURASIDONE HCL 80 MG TABLET PO SCH (16:17)
[2023-03-18] MEDS ORDERED: ONDANSETRON HCL 4 MG/2 ML VIAL IM ONE (16:45)
[2023-03-18 20:04] VITALS: BP 112/76; PULSE 89; RESP 19; TEMP 97.8; O2SAT 93
[2023-03-18] MEDS: TraZODone HCL 100 MG TABLET PO SCH (20:48)
[2023-03-18] MEDS: HALOPERIDOL 10 MG TABLET PO SCH (20:48)
[2023-03-18] MEDS: GABAPENTIN 300 MG CAPSULE PO SCH (20:48)
[2023-03-18] MEDS: PRAZOSIN HCL 1 MG CAPSULE PO SCH (20:49)
[2023-03-18] MEDS: DiphenhydrAMINE HCL 25 MG CAPSULE PO SCH (20:49)
[2023-03-18] MEDS ORDERED: ONDANSETRON HCL 4 MG/2 ML VIAL IM PRN (21:00)
[2023-03-19] MEDS: MetFORMIN HCL 500 MG TABLET PO SCH (06:40)
[2023-03-19] MEDS: LITHIUM CARBONATE 300 MG CAPSULE PO SCH (09:00)
[2023-03-19] MEDS: FLUoxetine HCL 20 MG CAPSULE PO SCH (10:01)
[2023-03-19] MEDS: DiphenhydrAMINE HCL 25 MG CAPSULE PO SCH ×2 (10:01→20:14)
[2023-03-19] MEDS: CHOLECALCIFEROL (VIT D3) 5,000 [125 MCG] UNITS CAPSULE PO SCH (10:01)
[2023-03-19] MEDS: OMEGA-3/DHA/EPA/FISH OIL 1,000 MG CAPSULE PO SCH ×2 (10:01→16:48)
[2023-03-19] MEDS: HALOPERIDOL 5 MG TABLET PO SCH (10:02)
[2023-03-19] MEDS: CEPHALEXIN MONOHYDRATE 500 MG CAPSULE PO SCH ×2 (13:09→16:48)
[2023-03-19] MEDS: LURASIDONE HCL 80 MG TABLET PO SCH (16:48)
[2023-03-19] MEDS: GABAPENTIN 300 MG CAPSULE PO SCH (20:14)
[2023-03-19] MEDS: TraZODone HCL 100 MG TABLET PO SCH (20:14)
[2023-03-19] MEDS: HALOPERIDOL 10 MG TABLET PO SCH (20:14)
[2023-03-19] MEDS: PRAZOSIN HCL 1 MG CAPSULE PO SCH (20:15)
[2023-03-19 23:43] VITALS: BP 130/79; PULSE 100; RESP 18; TEMP 97.9; O2SAT 96
[2023-03-20] MEDS: MetFORMIN HCL 500 MG TABLET PO SCH (07:08)
[2023-03-20] MEDS: OMEGA-3/DHA/EPA/FISH OIL 1,000 MG CAPSULE PO SCH ×2 (08:49→16:59)
[2023-03-20] MEDS: FLUoxetine HCL 20 MG CAPSULE PO SCH (08:50)
[2023-03-20] MEDS: CHOLECALCIFEROL (VIT D3) 5,000 [125 MCG] UNITS CAPSULE PO SCH (08:50)
[2023-03-20] MEDS: HALOPERIDOL 5 MG TABLET PO SCH (08:50)
[2023-03-20] MEDS: DiphenhydrAMINE HCL 25 MG CAPSULE PO SCH ×2 (08:50→20:29)
[2023-03-20] MEDS: CEPHALEXIN MONOHYDRATE 500 MG CAPSULE PO SCH ×3 (08:50→17:00)
[2023-03-20 09:21] VITALS: BP 133/87; PULSE 86; RESP 18; TEMP 98.5; O2SAT 99
[2023-03-20] MEDS: LURASIDONE HCL 80 MG TABLET PO SCH (17:00)
[2023-03-20 20:28] VITALS: BP 119/73; PULSE 79; RESP 19; TEMP 97.2; O2SAT 95
[2023-03-20] MEDS: TraZODone HCL 100 MG TABLET PO SCH (20:29)
[2023-03-20] MEDS: PRAZOSIN HCL 1 MG CAPSULE PO SCH (20:29)
[2023-03-20] MEDS: GABAPENTIN 300 MG CAPSULE PO SCH (20:29)
[2023-03-20] MEDS: HALOPERIDOL 10 MG TABLET PO SCH (20:29)
[2023-03-20] MEDS: ZOLPIDEM TARTRATE 10 MG TABLET PO PRN (21:44)
[2023-03-21] MEDS: MetFORMIN HCL 500 MG TABLET PO SCH (06:37)
[2023-03-21] MEDS: HALOPERIDOL 5 MG TABLET PO SCH (08:04)
[2023-03-21] MEDS: FLUoxetine HCL 20 MG CAPSULE PO SCH (08:04)
[2023-03-21] MEDS: OMEGA-3/DHA/EPA/FISH OIL 1,000 MG CAPSULE PO SCH (08:04)
[2023-03-21] MEDS: DiphenhydrAMINE HCL 25 MG CAPSULE PO SCH ×2 (08:04→20:06)
[2023-03-21] MEDS: CEPHALEXIN MONOHYDRATE 500 MG CAPSULE PO SCH ×3 (08:04→16:23)
[2023-03-21] MEDS: CHOLECALCIFEROL (VIT D3) 5,000 [125 MCG] UNITS CAPSULE PO SCH (08:04)
[2023-03-21] MEDS: LURASIDONE HCL 80 MG TABLET PO SCH (16:23)
[2023-03-21] MEDS: GABAPENTIN 300 MG CAPSULE PO SCH (20:06)
[2023-03-21] MEDS: TraZODone HCL 100 MG TABLET PO SCH (20:06)
[2023-03-21] MEDS: PRAZOSIN HCL 1 MG CAPSULE PO SCH (20:06)
[2023-03-21] MEDS: HALOPERIDOL 10 MG TABLET PO SCH (20:06)
[2023-03-21 20:35] VITALS: BP 122/73; PULSE 68; RESP 18; TEMP 97.5; O2SAT 98
[2023-03-22] MEDS: MetFORMIN HCL 500 MG TABLET PO SCH (06:44)
[2023-03-22 08:35] VITALS: BP 106/63; PULSE 71; RESP 16; TEMP 97.2; O2SAT 97
[2023-03-22] MEDS: FLUoxetine HCL 20 MG CAPSULE PO SCH (08:45)
[2023-03-22] MEDS: HALOPERIDOL 5 MG TABLET PO SCH (08:46)
[2023-03-22] MEDS: DiphenhydrAMINE HCL 25 MG CAPSULE PO SCH ×2 (08:46→20:35)
[2023-03-22] MEDS: CEPHALEXIN MONOHYDRATE 500 MG CAPSULE PO SCH ×3 (08:46→17:16)
[2023-03-22] MEDS: CHOLECALCIFEROL (VIT D3) 5,000 [125 MCG] UNITS CAPSULE PO SCH (08:46)
[2023-03-22] MEDS: LURASIDONE HCL 80 MG TABLET PO SCH (17:16)
[2023-03-22 20:19] VITALS: BP 112/70; PULSE 77; RESP 17; TEMP 98.6; O2SAT 96
[2023-03-22] MEDS: PRAZOSIN HCL 1 MG CAPSULE PO SCH (20:35)
[2023-03-22] MEDS: TraZODone HCL 100 MG TABLET PO SCH (20:35)
[2023-03-22] MEDS: HALOPERIDOL 10 MG TABLET PO SCH (20:35)
[2023-03-22] MEDS: GABAPENTIN 300 MG CAPSULE PO SCH (20:36)
[2023-03-23] MEDS: MetFORMIN HCL 500 MG TABLET PO SCH (07:03)
[2023-03-23] MEDS: CEPHALEXIN MONOHYDRATE 500 MG CAPSULE PO SCH ×3 (08:22→16:01)
[2023-03-23] MEDS: FLUoxetine HCL 20 MG CAPSULE PO SCH (08:22)
[2023-03-23] MEDS: HALOPERIDOL 5 MG TABLET PO SCH (08:22)
[2023-03-23] MEDS: DiphenhydrAMINE HCL 25 MG CAPSULE PO SCH ×2 (08:22→20:25)
[2023-03-23 08:52] VITALS: BP 118/76; PULSE 90; RESP 17; TEMP 98.9; O2SAT 97
[2023-03-23] MEDS: CHOLECALCIFEROL (VIT D3) 5,000 [125 MCG] UNITS CAPSULE PO SCH (11:05)
[2023-03-23] MEDS: LURASIDONE HCL 80 MG TABLET PO SCH (16:01)
[2023-03-23 20:06] VITALS: BP 102/69; PULSE 87; RESP 18; TEMP 97.8; O2SAT 95
[2023-03-23] MEDS: HALOPERIDOL 10 MG TABLET PO SCH (20:25)
[2023-03-23] MEDS: TraZODone HCL 100 MG TABLET PO SCH (20:25)
[2023-03-23] MEDS: GABAPENTIN 300 MG CAPSULE PO SCH (20:25)
[2023-03-23] MEDS: PRAZOSIN HCL 1 MG CAPSULE PO SCH (20:25)
[2023-03-23] MEDS: ZOLPIDEM TARTRATE 10 MG TABLET PO PRN (23:13)
[2023-03-24 00:25] VITALS: BP 108/71; PULSE 96; RESP 19; TEMP 98.3; O2SAT 97
[2023-03-24] MEDS: MetFORMIN HCL 500 MG TABLET PO SCH (06:18)
[2023-03-24 08:27] VITALS: BP 111/65; PULSE 68; RESP 17; TEMP 97.9; O2SAT 98
[2023-03-24] MEDS: FLUoxetine HCL 20 MG CAPSULE PO SCH (08:55)
[2023-03-24] MEDS: CHOLECALCIFEROL (VIT D3) 5,000 [125 MCG] UNITS CAPSULE PO SCH (08:55)
[2023-03-24] MEDS: HALOPERIDOL 5 MG TABLET PO SCH (08:56)
[2023-03-24] MEDS: DiphenhydrAMINE HCL 25 MG CAPSULE PO SCH ×2 (08:56→21:48)
[2023-03-24] MEDS: CEPHALEXIN MONOHYDRATE 500 MG CAPSULE PO SCH ×3 (08:56→16:48)
[2023-03-24] MEDS: LORazepam 2 MG TABLET PO PRN (08:56)
[2023-03-24] MEDS: BuPROPion HCL 150 MG SR TABLET PO SCH (15:03)
[2023-03-24] MEDS: LURASIDONE HCL 80 MG TABLET PO SCH (16:48)
[2023-03-24 20:15] VITALS: BP 140/80; PULSE 82; RESP 20; TEMP 97.6; O2SAT 100
[2023-03-24] MEDS: PRAZOSIN HCL 1 MG CAPSULE PO SCH (21:48)
[2023-03-24] MEDS: TraZODone HCL 100 MG TABLET PO SCH (21:48)
[2023-03-24] MEDS: HALOPERIDOL 10 MG TABLET PO SCH (21:48)
[2023-03-24] MEDS: GABAPENTIN 300 MG CAPSULE PO SCH (21:48)
[2023-03-24] MEDS: ZOLPIDEM TARTRATE 10 MG TABLET PO PRN (23:47)
[2023-03-25] MEDS: MetFORMIN HCL 500 MG TABLET PO SCH (06:40)
[2023-03-25 08:23] VITALS: BP 118/58; PULSE 93; RESP 17; TEMP 97.9; O2SAT 96
[2023-03-25] MEDS: DiphenhydrAMINE HCL 25 MG CAPSULE PO SCH ×2 (10:30→20:08)
[2023-03-25] MEDS: CEPHALEXIN MONOHYDRATE 500 MG CAPSULE PO SCH ×3 (10:31→16:44)
[2023-03-25] MEDS: FLUoxetine HCL 20 MG CAPSULE PO SCH (10:31)
[2023-03-25] MEDS: HALOPERIDOL 5 MG TABLET PO SCH (10:31)
[2023-03-25] MEDS: CHOLECALCIFEROL (VIT D3) 5,000 [125 MCG] UNITS CAPSULE PO SCH (10:32)
[2023-03-25] MEDS: BuPROPion HCL 150 MG SR TABLET PO SCH (10:39)
[2023-03-25] MEDS: LURASIDONE HCL 80 MG TABLET PO SCH (16:44)
[2023-03-25 20:08] VITALS: BP 125/71; PULSE 88; RESP 17; TEMP 97.5
[2023-03-25] MEDS: TraZODone HCL 100 MG TABLET PO SCH (20:08)
[2023-03-25] MEDS: HALOPERIDOL 10 MG TABLET PO SCH (20:08)
[2023-03-25] MEDS: GABAPENTIN 300 MG CAPSULE PO SCH (20:08)
[2023-03-25] MEDS: PRAZOSIN HCL 1 MG CAPSULE PO SCH (20:08)
[2023-03-25] MEDS: ZOLPIDEM TARTRATE 10 MG TABLET PO PRN (22:13)
[2023-03-26] MEDS: MetFORMIN HCL 500 MG TABLET PO SCH (06:43)
[2023-03-26 08:15] VITALS: BP 108/58; PULSE 77; RESP 17; TEMP 97.8; O2SAT 100
[2023-03-26] MEDS: CEPHALEXIN MONOHYDRATE 500 MG CAPSULE PO SCH ×3 (08:28→16:07)
[2023-03-26] MEDS: DiphenhydrAMINE HCL 25 MG CAPSULE PO SCH ×2 (08:28→20:03)
[2023-03-26] MEDS: LORazepam 2 MG TABLET PO PRN (08:28)
[2023-03-26] MEDS: HALOPERIDOL 5 MG TABLET PO SCH (08:28)
[2023-03-26] MEDS: FLUoxetine HCL 20 MG CAPSULE PO SCH (08:28)
[2023-03-26] MEDS: BuPROPion HCL 150 MG SR TABLET PO SCH (08:28)
[2023-03-26] MEDS: CHOLECALCIFEROL (VIT D3) 5,000 [125 MCG] UNITS CAPSULE PO SCH (08:47)
[2023-03-26] MEDS: LURASIDONE HCL 80 MG TABLET PO SCH (16:06)
[2023-03-26] MEDS: PRAZOSIN HCL 1 MG CAPSULE PO SCH (20:03)
[2023-03-26] MEDS: TraZODone HCL 100 MG TABLET PO SCH (20:03)
[2023-03-26] MEDS: GABAPENTIN 300 MG CAPSULE PO SCH (20:03)
[2023-03-26] MEDS: HALOPERIDOL 10 MG TABLET PO SCH (20:03)
[2023-03-26 20:52] VITALS: BP 103/68; PULSE 100; RESP 18; TEMP 97.3; O2SAT 96
[2023-03-26] MEDS: ZOLPIDEM TARTRATE 10 MG TABLET PO PRN (21:47)
[2023-03-27] MEDS: MetFORMIN HCL 500 MG TABLET PO SCH (06:34)
[2023-03-27] MEDS: HALOPERIDOL 5 MG TABLET PO SCH (08:21)
[2023-03-27] MEDS: FLUoxetine HCL 20 MG CAPSULE PO SCH (08:21)
[2023-03-27] MEDS: CHOLECALCIFEROL (VIT D3) 5,000 [125 MCG] UNITS CAPSULE PO SCH (08:21)
[2023-03-27] MEDS: BuPROPion HCL 150 MG SR TABLET PO SCH (08:21)
[2023-03-27] MEDS: DiphenhydrAMINE HCL 25 MG CAPSULE PO SCH ×2 (08:21→21:29)
[2023-03-27 08:38] VITALS: BP 121/65; PULSE 83; RESP 18; TEMP 98.2; O2SAT 99
[2023-03-27] MEDS ORDERED: IBUP-1506 PO (12:00)
[2023-03-27] MEDS ORDERED: LURA80TA4 PO (12:00)
[2023-03-27] MEDS ORDERED: TRAZ-257 PO (12:00)
[2023-03-27] MEDS ORDERED: FLUO20CA36 PO (12:00)
[2023-03-27] MEDS ORDERED: HALO5TAB23 PO (12:00)
[2023-03-27] MEDS ORDERED: GABA-1181 PO (12:00)
[2023-03-27] MEDS ORDERED: DIPH25CA85 PO ×2 (12:00)
[2023-03-27] MEDS ORDERED: HALO10TA21 PO (12:00)
[2023-03-27] MEDS ORDERED: PRAZ1 PO (12:00)
[2023-03-27] MEDS ORDERED: ACET325T51 PO (12:00)
[2023-03-27] MEDS ORDERED: BUPR-113 PO (12:00)
[2023-03-27] MEDS ORDERED: METF-1211 PO (12:00)
[2023-03-27] MEDS: LURASIDONE HCL 80 MG TABLET PO SCH (17:20)
[2023-03-27 21:00] VITALS: BP 108/64; PULSE 98; RESP 17; TEMP 97.8; O2SAT 99
[2023-03-27] MEDS: PRAZOSIN HCL 1 MG CAPSULE PO SCH (21:30)
[2023-03-27] MEDS: HALOPERIDOL 10 MG TABLET PO SCH (21:30)
[2023-03-27] MEDS: GABAPENTIN 300 MG CAPSULE PO SCH (21:30)
[2023-03-27] MEDS: TraZODone HCL 100 MG TABLET PO SCH (21:30)
[2023-03-27] MEDS: ZOLPIDEM TARTRATE 10 MG TABLET PO PRN (22:21)
[2023-03-28] MEDS: MetFORMIN HCL 500 MG TABLET PO SCH (06:44)
[2023-03-28 08:16] VITALS: BP 101/62; PULSE 71; RESP 18; TEMP 97.5; O2SAT 96
[2023-03-28] MEDS: CHOLECALCIFEROL (VIT D3) 5,000 [125 MCG] UNITS CAPSULE PO SCH (08:16)
[2023-03-28] MEDS: HALOPERIDOL 5 MG TABLET PO SCH (08:16)
[2023-03-28] MEDS: BuPROPion HCL 150 MG SR TABLET PO SCH (08:16)
[2023-03-28] MEDS: DiphenhydrAMINE HCL 25 MG CAPSULE PO SCH (08:16)
[2023-03-28] MEDS: FLUoxetine HCL 20 MG CAPSULE PO SCH (08:17)
== END 2023-03-28 11:45 | disposition home or self-care (01) | DRG 750 ==
LOC: B2S 21:24
PROVIDERS: ADMIT Psychiatry & Neurology Child & Adolescent Psychiatry; ATTEND Psychiatry & Neurology Child & Adolescent Psychiatry
DX: F25.1 Schizoaffective disorder, depressive type (principal); D64.9 Anemia, unspecified; E66.9 Obesity, unspecified; G47.00 Insomnia, unspecified; Z20.822 Contact with and (suspected) exposure to COVID-19; J45.909 Unspecified asthma, uncomplicated; Z68.39 Body mass index [BMI] 39.0-39.9, adult; Z79.899 Other long term (current) drug therapy; Z91.013 Allergy to seafood; Z59.00 Homelessness unspecified
CPT/HCPCS: 80053; 80061; 80307; 81003; 83036; 84439; 84443; 84703; 85025; 90686; J2405; J3535; Q0162

== ENCOUNTER 2023-03-18 22:59 | Emergency (ER) | payer MEDICAID, OTHER ==
[~2023-03-18] VITALS: Ht 172.7 cm; Wt 125.0 kg
[2023-03-18 23:03] VITALS: TEMP 98.5
[2023-03-19 00:50] LABS: BASOPHILS % (AUTO) 1.2 % (0.0-2.0); HEMOGLOBIN 12.9 g/dL (12.0-16.0); LYMPHOCYTES # (AUTO) 3.3 K/uL (1.0-4.8); LYMPHOCYTES % (AUTO) 40.4 % (22.0-44.0); MEAN CORPUSCULAR HEMOGLOBIN 27.7 pg (26.0-34.0); MEAN CORPUSCULAR HGB CONC 33.1 G/dL (31.0-37.0); MEAN CORPUSCULAR VOLUME 84 fL (80-100); MONOCYTES # (AUTO) 0.7 K/uL (0.1-1.0); MONOCYTES % (AUTO) 8.6 % (2.0-9.0); NEUTROPHILS % (AUTO) 48.8 % (40.0-70.0); PLATELET COUNT (AUTO) 333 K/uL (150-450); RED BLOOD CELL COUNT(AUTO) 4.66 MIL/uL (4.00-5.20); RED CELL DISTRIBUTION WIDTH 13.8 % (11.5-14.5); WHITE BLOOD COUNT (AUTO) 8.2 K/uL (4.5-11.0)
[2023-03-19 01:08] LABS: APPEARANCE,URINE HAZY (CLEAR); BILIRUBIN,URINE NEGATIVE (NEGATIVE); COLOR,URINE YELLOW (YELLOW); GLUCOSE, URINE (UA) NEGATIVE (NEGATIVE); KETONES,URINE TRACE mg/dL (NEGATIVE); LEUKOCYTE ESTERASE ,URINE MODERATE (NEGATIVE); NITRATE,URINE NEGATIVE (NEGATIVE); OCCULT BLOOD,URINE NEGATIVE (NEGATIVE); PH,URINE 5.5 (5.0-8.0); PROTEIN,URINE TRACE mg/dL (NEGATIVE); SPECIFIC GRAVITIY, URINE 1.024 (1.003-1.030); UROBILINOGEN,URINE <=1.0 mg/dL (<=1.0)
[2023-03-19 01:10] LABS: ANION GAP 4 mmol/L (8-16); CALCIUM, TOTAL 9.3 mg/dL (8.8-10.5); CARBON DIOXIDE 32 mmol/L (22-29); CHLORIDE 102 mmol/L (98-107); CREATININE 0.77 mg/dL (0.60-1.30); GLOMERULAR FILTR. RATE CALC > 60 mL/min (>60); GLUCOSE,RANDOM 100 mg/dL (70-110); POTASSIUM 3.8 mmol/L (3.5-5.1); SODIUM SERUM 138 mmol/L (136-145); UREA NITROGEN, BLOOD 10 mg/dL (7-18)
[2023-03-19 01:16] LABS: ALANINE AMINOTRANSFERASE 36 U/L (12-78); ALBUMIN 3.8 g/dL (3.4-5.0); ALKALINE PHOSPHATASE 74 U/L (46-116); ASPARTATE AMINOTRANSFERASE 19 U/L (15-37); BILIRUBIN,TOTAL 0.4 mg/dL (0.1-1.0); LIPASE 26 U/L (16-77); TOTAL PROTEIN, SERUM 7.5 g/dL (6.4-8.2)
[2023-03-19 01:18] LABS: RBC,URINE None Seen /HPF (0-2)
[2023-03-19 01:19] LABS: BACTERIA,URINE Moderate /HPF (None Seen); SQUAMOUS EPITHELIAL CELL,UR Many /LPF (None Seen)
[2023-03-19] MEDS ORDERED: CEPHALEXIN MONOHYDRATE 500 MG CAPSULE PO ONE (03:30)
[2023-03-19 08:31] VITALS: BP 112/65; PULSE 72; RESP 15
== END 2023-03-19 08:34 ==
LOC: EMS 23:01
DX: N39.0 Urinary tract infection, site not specified (principal); F31.9 Bipolar disorder, unspecified; F20.9 Schizophrenia, unspecified; F12.90 Cannabis use, unspecified, uncomplicated; Z91.013 Allergy to seafood
CPT/HCPCS: 80053; 80178; 81001; 83690; 85025; 87086; 87186; 99283

== ENCOUNTER 2023-03-24 04:40 | Emergency (ER) | payer OTHER ==
[~2023-03-24] VITALS: Ht 167.6 cm; Wt 110.0 kg
[2023-03-24 04:49] VITALS: TEMP 98.2
[2023-03-24] MEDS ORDERED: PredniSONE 20 MG TABLET PO ONE (05:30)
[2023-03-24] MEDS ORDERED: GuaiFENesin/D-METHORPHAN [SUGAR-FREE] 200-20MG/10 ML SYRUP UDCUP PO ONE (05:30)
[2023-03-24 05:54] LABS: COVID AG,FIA SOURCE NASAL SWAB
[2023-03-24 06:18] LABS: SARS-COV2 (COVID) ANTIGEN,FIA Negative (Negative)
[2023-03-24 07:09] VITALS: BP 115/60; PULSE 88; RESP 18
== END 2023-03-24 07:23 | disposition home or self-care (01) ==
LOC: EMS 04:41
DX: J45.901 Unspecified asthma with (acute) exacerbation (principal); F25.9 Schizoaffective disorder, unspecified; F31.9 Bipolar disorder, unspecified; F12.90 Cannabis use, unspecified, uncomplicated; Z91.013 Allergy to seafood; Z20.822 Contact with and (suspected) exposure to COVID-19
CPT/HCPCS: 99284; 71045; 87426; J7512

== ENCOUNTER 2025-01-31 21:04 | Emergency (ER) | payer MEDICAID, OTHER ==
[~2025-01-31] VITALS: Ht 162.6 cm; Wt 100.0 kg
[~2025-01-31 21:04] MED LIST changes: +ACET-3862 PO; +BUPR-113 PO; +DIPH25CA85 PO; +FLUO-418 PO; +GABA-1181 PO; +HALO10TA21 PO; +HALO5TAB23 PO; +IBUP-1506 PO; -LITH300C3 PO; +METF-1211 PO; +PRAZ1 PO; +TRAZ-257 PO
[2025-01-31 22:59] VITALS: TEMP 98.2
[2025-02-01 01:53] LABS: PLATELET COUNT (AUTO) 375 K/uL (150-450); RED BLOOD CELL COUNT(AUTO) 5.25 MIL/uL (4.00-5.20); RED CELL DISTRIBUTION WIDTH 16.0 % (11.5-14.5); WHITE BLOOD COUNT (AUTO) 11.2 K/uL (4.5-11.0)
[2025-02-01 02:00] LABS: CALCIUM, TOTAL 8.9 mg/dL (8.8-10.5); CREATININE 0.62 mg/dL (0.60-1.30); GLOMERULAR FILTR. RATE CALC > 60 mL/min (>60); GLUCOSE,RANDOM 96 mg/dL (70-110); SODIUM SERUM 140 mmol/L (136-145); UREA NITROGEN, BLOOD 11 mg/dL (7-18)
[2025-02-01 03:07] VITALS: BP 115/58; PULSE 82; RESP 18; O2SAT 99
[2025-02-01 03:18] LABS: COVID AG,FIA SOURCE NASAL SWAB
[2025-02-01 03:23] LABS: SARS-COV2 (COVID) ANTIGEN,FIA Negative (Negative)
[2025-02-02] MEDS ORDERED: MELA5TAB50 PO (08:35)
[2025-02-02] MEDS ORDERED: HALO100V36 IM (09:15)
[2025-02-02] MEDS ORDERED: LAMO25TA36 PO (09:15)
[2025-02-02] MEDS ORDERED: OLAN5TAB94 PO (09:15)
[2025-02-02] MEDS ORDERED: BENZ2TAB84 PO (09:15)
[2025-02-02] MEDS ORDERED: MELA5TAB40 PO (09:15)
[2025-02-02] MEDS ORDERED: DULO60CA73 PO (09:15)
== END 2025-02-01 03:44 | disposition admitted as inpatient to this hospital (09) ==
LOC: EMS 21:04
DX: F25.9 Schizoaffective disorder, unspecified (principal); R00.0 Tachycardia, unspecified; F31.9 Bipolar disorder, unspecified; F12.90 Cannabis use, unspecified, uncomplicated; Z87.820 Personal history of traumatic brain injury; Z91.013 Allergy to seafood; Z79.899 Other long term (current) drug therapy; Z20.822 Contact with and (suspected) exposure to COVID-19
CPT/HCPCS: 80048; 85025; 93005; 99284

== ENCOUNTER 2025-02-02 01:36 | Inpatient (IN) | payer MEDICAID, OTHER ==
[~2025-02-02] VITALS: Ht 172.7 cm; Wt 109.0 kg
[2025-02-02] MEDS: SODIUM CHLORIDE 0.9% 1,000 ML IV ONE (03:52)
[2025-02-02 03:55] LABS: PLATELET COUNT (AUTO) 329 K/uL (150-450); RED BLOOD CELL COUNT(AUTO) 5.06 MIL/uL (4.00-5.20); RED CELL DISTRIBUTION WIDTH 15.7 % (11.5-14.5); WHITE BLOOD COUNT (AUTO) 10.8 K/uL (4.5-11.0)
[2025-02-02 04:13] LABS: CALCIUM, TOTAL 8.7 mg/dL (8.8-10.5); CREATININE 0.57 mg/dL (0.60-1.30); GLOMERULAR FILTR. RATE CALC > 60 mL/min (>60); GLUCOSE,RANDOM 90 mg/dL (70-110); SODIUM SERUM 140 mmol/L (136-145); UREA NITROGEN, BLOOD 8 mg/dL (7-18)
[2025-02-02 04:22] LABS: TOTAL PROTEIN, SERUM 7.1 g/dL (6.4-8.2)
[2025-02-02 04:41] LABS: ASPARTATE AMINOTRANSFERASE 16.0 U/L (15-37)
[2025-02-02 04:49] LABS: APPEARANCE,URINE HAZY (CLEAR); GLUCOSE, URINE (UA) NEGATIVE (NEGATIVE); LEUKOCYTE ESTERASE ,URINE SMALL (NEGATIVE); NITRATE,URINE NEGATIVE (NEGATIVE); OCCULT BLOOD,URINE NEGATIVE (NEGATIVE); SPECIFIC GRAVITIY, URINE 1.030 (1.003-1.030)
[2025-02-02 05:05] LABS: SQUAMOUS EPITHELIAL CELL,UR None Seen /LPF (None Seen)
[2025-02-02] MEDS: POTASSIUM CHLORIDE 10% 40 MEQ/30 ML LIQUID UDCUP PO ONE (05:09)
[2025-02-02] MEDS ORDERED: MELA5TAB50 PO (08:35)
[2025-02-02] MEDS: DOCUSATE SODIUM 100 MG CAPSULE PO SCH (09:00)
[2025-02-02] MEDS ORDERED: ACETAMINOPHEN 325 MG TABLET PO PRN (09:00)
[2025-02-02] MEDS ORDERED: POTASSIUM CHL 10 MEQ/WATER 50 ML IV PRN (09:00)
[2025-02-02] MEDS ORDERED: BISACODYL 10 MG RECTAL RECTAL SUPPOSITORY PR PRN (09:00)
[2025-02-02] MEDS: PANTOPRAZOLE SODIUM 40 MG/VIAL IVP SCH (09:11)
[2025-02-02] MEDS ORDERED: MELA5TAB40 PO (09:15)
[2025-02-02] MEDS ORDERED: HALO100V36 IM (09:15)
[2025-02-02] MEDS ORDERED: LAMO25TA36 PO (09:15)
[2025-02-02] MEDS ORDERED: BENZ2TAB84 PO (09:15)
[2025-02-02] MEDS ORDERED: DULO60CA73 PO (09:15)
[2025-02-02] MEDS ORDERED: OLAN5TAB94 PO (09:15)
[2025-02-02 10:14] VITALS: BP 122/86; PULSE 85; RESP 18; TEMP 98.1; O2SAT 98
[2025-02-02 11:38] VITALS: BP 124/88; PULSE 85; RESP 18; TEMP 98; O2SAT 98
[2025-02-02] MEDS: DEXTROSE 5%-0.45% SODIUM CHL 1,000 ML IV SCH (11:40)
[2025-02-02] MEDS: ONDANSETRON HCL 4 MG/2 ML VIAL IVP PRN (12:31)
[2025-02-02 15:03] VITALS: BP 117/69; PULSE 77; RESP 18; TEMP 97.5; O2SAT 98
[2025-02-02] MEDS: HEPARIN SODIUM,PORCINE 5,000 UNITS/ML VIAL SQ SCH (15:13)
[2025-02-02] MEDS: POTASSIUM CHLORIDE 20 MEQ ER TABLET PO PRN (15:47)
[2025-02-02 20:50] VITALS: BP 112/73; PULSE 78; RESP 16; TEMP 98.1; O2SAT 97
[2025-02-03] MEDS ORDERED: GABAPENTIN 300 MG CAPSULE PO PRN (14:30)
[2025-02-03] MEDS: LURASIDONE HCL 40 MG TABLET PO SCH (17:02)
[2025-02-03 19:45] VITALS: BP 117/81; PULSE 90; RESP 18; TEMP 98.6; O2SAT 97
[2025-02-03] MEDS: VALPROIC ACID 250 MG/5 ML SOLUTION UDCUP PO SCH (20:37)
[2025-02-04 04:19] VITALS: BP 131/74; PULSE 87; RESP 18; TEMP 98; O2SAT 99
[2025-02-04 07:45] VITALS: BP 137/84; PULSE 84; RESP 18; TEMP 97.9; O2SAT 98
[2025-02-04] MEDS: DULoxetine HCL 30 MG CAPSULE PO SCH (08:24)
[2025-02-04 15:48] VITALS: BP 127/72; PULSE 90; RESP 18; TEMP 97.9; O2SAT 99
[2025-02-04 20:15] VITALS: BP 119/75; PULSE 92; RESP 18; TEMP 98.6; O2SAT 95
[2025-02-04] MEDS: MELATONIN 5 MG TABLET PO SCH (20:15)
[2025-02-05 06:00] VITALS: BP 102/79; PULSE 86; RESP 18; TEMP 97.9; O2SAT 94
[2025-02-05 08:07] VITALS: BP 111/72; PULSE 78; RESP 18; TEMP 97.9; O2SAT 95
[2025-02-05 16:01] VITALS: BP 112/73; PULSE 83; RESP 18; TEMP 98.6; O2SAT 97
[2025-02-05 20:00] VITALS: BP 130/90; PULSE 105; RESP 20; TEMP 98.6; O2SAT 96
[2025-02-06 04:00] VITALS: BP 112/69; PULSE 93; RESP 18; TEMP 98.6; O2SAT 95
[2025-02-06 08:47] VITALS: BP 115/65; PULSE 71; RESP 18; TEMP 98.1; O2SAT 98
[2025-02-06 17:07] VITALS: BP 113/70; PULSE 82; RESP 18; TEMP 98.1; O2SAT 98
[2025-02-06 19:33] VITALS: BP 125/74; PULSE 95; RESP 20; TEMP 98.2; O2SAT 96
[2025-02-06] MEDS: LURASIDONE HCL 20 MG TABLET PO PRN (20:18)
[2025-02-07 04:30] VITALS: BP 100/53; PULSE 85; RESP 18; TEMP 98.1; O2SAT 96
[2025-02-07 08:08] VITALS: BP 102/59; PULSE 91; RESP 18; TEMP 97.9; O2SAT 98
[2025-02-07 16:37] VITALS: BP 125/84; PULSE 103; RESP 18; TEMP 97.5; O2SAT 98
[2025-02-07 19:25] VITALS: BP 120/83; PULSE 106; RESP 20; TEMP 98.5; O2SAT 100
[2025-02-08 03:58] VITALS: BP 108/68; PULSE 91; RESP 20; TEMP 98.6; O2SAT 98
[2025-02-08 09:30] VITALS: BP 129/68; PULSE 98; RESP 19; TEMP 97.7; O2SAT 98
[2025-02-08 12:46] LABS: COVID AG,FIA SOURCE NASAL SWAB
[2025-02-08 13:12] LABS: SARS-COV2 (COVID) ANTIGEN,FIA Negative (Negative)
[2025-02-08 15:39] VITALS: BP 113/70; PULSE 96; RESP 18; TEMP 97.8; O2SAT 99
[2025-02-08] MEDS ORDERED: ACET-2247 PO (17:55)
[2025-02-08] MEDS ORDERED: DULO30CA62 PO (17:56)
[2025-02-08] MEDS ORDERED: GABA-1181 PO (18:00)
[2025-02-08] MEDS ORDERED: LAMO25TA36 PO (18:04)
[2025-02-08] MEDS ORDERED: LURA40TA2 PO (18:05)
[2025-02-08] MEDS ORDERED: TRAZ-252 PO (18:07)
[2025-02-08] MEDS ORDERED: DOCU-385 PO (18:08)
[2025-02-08] MEDS ORDERED: PANT-31 PO (18:09)
[2025-02-08] MEDS ORDERED: HEPA50009 SQ (18:09)
[2025-02-08] MEDS ORDERED: VALP250C48 PO (18:10)
[2025-02-08] MEDS ORDERED: ONDA-104 PO (18:11)
[2025-02-08] MEDS ORDERED: LURA20TA PO (18:11)
[2025-02-08] MEDS ORDERED: BISA10SU11 PR (18:12)
== END 2025-02-08 20:50 | DRG 422 ==
LOC: EMS 01:38 → EDH 08:32 → 5S 10:05 → 6N 19:34 → 6S 21:12
PROVIDERS: ADMIT Internal Medicine; ATTEND Internal Medicine
PROC: GZ56ZZZ Individual Psychotherapy, Supportive (ICD-10-PCS; principal; 2025-02-04)
DX: E87.6 Hypokalemia (principal); E86.0 Dehydration; F25.0 Schizoaffective disorder, bipolar type; E66.9 Obesity, unspecified; Z20.822 Contact with and (suspected) exposure to COVID-19; R13.10 Dysphagia, unspecified; F60.0 Paranoid personality disorder; F84.0 Autistic disorder; Z91.018 Allergy to other foods; Z68.36 Body mass index [BMI] 36.0-36.9, adult; Z91.52 Personal history of nonsuicidal self-harm; Z79.899 Other long term (current) drug therapy
CPT/HCPCS: 70490; 71250; 72192; 74150; 74220; 80048; 80164; 81001; 82248; 83690; 84132; 84703; 85025; 92610; 97116; 97162; 99285; J1644; J2405; J2470; J7030

== ENCOUNTER 2025-02-08 11:58 | Inpatient (IN) | payer MEDICAID ==
[~2025-02-08] VITALS: Ht 175.3 cm; Wt 119.7 kg
[~2025-02-08 11:58] MED LIST changes: +BENZ2TAB84 PO; +DULO60CA73 PO; +HALO100V36 IM; +LAMO25TA36 PO; +MELA5TAB40 PO; +OLAN5TAB94 PO
[2025-02-08] MEDS ORDERED: MAGNESIUM HYDROXIDE SUSPENSION 30 ML UDCUP PO PRN (12:45)
[2025-02-08] MEDS ORDERED: GuaiFENesin/D-METHORPHAN [SUGAR-FREE] 200-20MG/10 ML SYRUP UDCUP PO PRN (12:45)
[2025-02-08] MEDS ORDERED: MAG HYDROX/ALUMINUM HYD/SIMETH ES 30 ML SUSPENSION UDCUP PO PRN (12:45)
[2025-02-08] MEDS ORDERED: LOPERAMIDE HCL 2 MG CAPSULE PO PRN (12:45)
[2025-02-08] MEDS ORDERED: PROMETHAZINE HCL 25 MG TABLET PO PRN (12:45)
[2025-02-08] MEDS ORDERED: ACET-2247 PO (17:55)
[2025-02-08] MEDS ORDERED: DULO30CA62 PO (17:56)
[2025-02-08] MEDS ORDERED: GABA-1181 PO (18:00)
[2025-02-08] MEDS ORDERED: LAMO25TA36 PO (18:04)
[2025-02-08] MEDS ORDERED: LURA40TA2 PO (18:05)
[2025-02-08] MEDS ORDERED: TRAZ-252 PO (18:07)
[2025-02-08] MEDS ORDERED: DOCU-385 PO (18:08)
[2025-02-08] MEDS ORDERED: PANT-31 PO (18:09)
[2025-02-08] MEDS ORDERED: HEPA50009 SQ (18:09)
[2025-02-08] MEDS ORDERED: VALP250C48 PO (18:10)
[2025-02-08] MEDS ORDERED: ONDA-104 PO (18:11)
[2025-02-08] MEDS ORDERED: LURA20TA PO (18:11)
[2025-02-08] MEDS ORDERED: BISA10SU11 PR (18:12)
[2025-02-08 20:31] VITALS: BP 104/71; PULSE 92; RESP 18; TEMP 98.5; O2SAT 100
[2025-02-08 20:35] VITALS: BP 104/71; PULSE 92; RESP 18; TEMP 98.5; O2SAT 100
[2025-02-08] MEDS: THIAMINE 100 MG TABLET PO SCH (21:09)
[2025-02-08] MEDS: VALPROIC ACID 250 MG/5 ML SOLUTION UDCUP PO SCH (21:09)
[2025-02-08] MEDS: MELATONIN 5 MG TABLET PO SCH (21:09)
[2025-02-09] MEDS ORDERED: INFLUENZA VIRUS VACCINE TVS (6MO+) 2025-26/PF 45 MCG/0.5 ML SYRINGE IM. ONE (01:15)
[2025-02-09] MEDS: LURASIDONE HCL 40 MG TABLET PO SCH (06:29)
[2025-02-09] MEDS: FOLIC ACID 1 MG TABLET PO SCH (08:32)
[2025-02-09] MEDS: MULTIVITAMINS WITH MINERALS, THERAPEUTIC TABLET PO SCH (08:32)
[2025-02-09 08:35] VITALS: BP 121/87; PULSE 67; RESP 18; TEMP 97.8; O2SAT 97
[2025-02-09] MEDS: DULoxetine HCL 30 MG CAPSULE PO SCH (08:35)
[2025-02-09 20:24] VITALS: BP 105/82; PULSE 89; RESP 18; TEMP 97.7; O2SAT 98
[2025-02-09 23:35] VITALS: BP 116/66; PULSE 87; RESP 18; TEMP 98.1; O2SAT 97
[2025-02-10] MEDS: LURASIDONE HCL 60 MG TABLET PO SCH (06:45)
[2025-02-10 08:00] VITALS: BP 112/84; PULSE 84; RESP 18; TEMP 98.1; O2SAT 97
[2025-02-10] MEDS: DULoxetine HCL 20 MG CAPSULE PO SCH (09:08)
[2025-02-10] MEDS: LURASIDONE HCL 20 MG TABLET PO PRN (22:03)
[2025-02-10 22:49] VITALS: BP 134/90; PULSE 99; RESP 18; TEMP 98; O2SAT 98
[2025-02-11] MEDS: ZOLPIDEM TARTRATE 10 MG TABLET PO PRN (01:34)
[2025-02-11] MEDS: LURASIDONE HCL 80 MG TABLET PO SCH (06:45)
[2025-02-11 08:38] VITALS: BP 108/80; PULSE 74; RESP 18; O2SAT 98
[2025-02-11 14:02] VITALS: BP 125/79; PULSE 74; RESP 18; TEMP 98; O2SAT 98
[2025-02-11] MEDS: ACETAMINOPHEN 325 MG TABLET PO PRN (14:02)
[2025-02-11] MEDS: TRIHEXYPHENIDYL HCL 5 MG TABLET PO ONE (17:38)
[2025-02-11 21:05] VITALS: BP 122/71; PULSE 73; RESP 18; TEMP 97.8
[2025-02-12] VITALS (7 sets, daily range): BP systolic 102–147; BP diastolic 67–100; PULSE 70–96; RESP 16–18; TEMP 98–98.2; O2SAT 97–99
[2025-02-12] MEDS: DULoxetine HCL 60 MG CAPSULE PO SCH (08:35)
[2025-02-12] MEDS: TRIHEXYPHENIDYL HCL 5 MG TABLET PO SCH (08:38)
[2025-02-12] MEDS: GABAPENTIN 300 MG CAPSULE PO PRN (09:44)
[2025-02-12] MEDS: ALBUTEROL SULFATE HFA 90 MCG/PUFF 8 GM INHALER IH PRN (12:08)
[2025-02-13 09:28] VITALS: BP 121/99; PULSE 60; RESP 18; TEMP 97.8; O2SAT 96
[2025-02-13 14:47] VITALS: BP 111/69; RESP 17; TEMP 97.6
[2025-02-13] MEDS: IBUPROFEN 600 MG TABLET PO PRN (14:47)
[2025-02-13 15:47] VITALS: BP 138/81; PULSE 77; RESP 17; TEMP 97.9
[2025-02-13 20:38] VITALS: BP 127/104; PULSE 106; RESP 18; TEMP 97.7; O2SAT 96
[2025-02-13 21:16] VITALS: RESP 18
[2025-02-13 22:16] VITALS: RESP 18
[2025-02-14 08:45] VITALS: BP 99/71; PULSE 71; RESP 18; TEMP 97.9; O2SAT 100
[2025-02-14] MEDS ORDERED: MELA5TAB40 PO (11:50)
[2025-02-14] MEDS ORDERED: TRIH5TAB3 PO ×2 (11:50→17:39)
[2025-02-14] MEDS ORDERED: VALP250S23 PO ×2 (11:50→17:39)
[2025-02-14] MEDS ORDERED: HALO100V36 IM (11:50)
[2025-02-14] MEDS ORDERED: DULO60CA73 PO (11:50)
[2025-02-14] MEDS ORDERED: LURA80TA2 PO ×2 (11:50→17:39)
[2025-02-14] MEDS ORDERED: HALO10TA21 PO ×2 (11:50→17:39)
[2025-02-14] MEDS ORDERED: LAMO25TA36 PO (11:50)
== END 2025-02-14 16:23 | disposition home or self-care (01) | DRG 761 ==
LOC: B3A 14:32 → 3EI 02-09 22:06
PROVIDERS: ADMIT Psychiatry & Neurology Psychiatry; ATTEND Psychiatry & Neurology Psychiatry
PROC: GZHZZZZ Group Psychotherapy (ICD-10-PCS; principal; 2025-02-08)
PROC: GZ58ZZZ Individual Psychotherapy, Cognitive-Behavioral (ICD-10-PCS; 2025-02-08)
PROC: GZ56ZZZ Individual Psychotherapy, Supportive (ICD-10-PCS; 2025-02-09)
DX: F25.0 Schizoaffective disorder, bipolar type (principal); R13.10 Dysphagia, unspecified; E66.9 Obesity, unspecified; F32.A Depression, unspecified; Z68.39 Body mass index [BMI] 39.0-39.9, adult; F41.9 Anxiety disorder, unspecified; G47.00 Insomnia, unspecified; F70 Mild intellectual disabilities; Z63.9 Problem related to primary support group, unspecified; Z59.9 Problem related to housing and economic circumstances, unspecified; Z65.3 Problems related to other legal circumstances; Z55.9 Problems related to education and literacy, unspecified; Z87.820 Personal history of traumatic brain injury; Z91.018 Allergy to other foods; Z79.899 Other long term (current) drug therapy
CPT/HCPCS: 80164; 87081; 90686; J1631; J3535